=== PATIENT | female | born 1990 | race Caucasian/White ===

== ENCOUNTER 2020-05-11 13:08 | Emergency (ER) | payer OTHER ==
[~2020-05-11 13:08] MED LIST: BENTYL 20MG TAB20 MG PO; LODINE CAP 300300 MG PO; MIRALAX17 GM PO; NAPROSYN500 MG PO; NORCO 5-325 TA1 EACH PO; PRENATAL VITAM1 EAC8 PO; TYLENOL 500 MG500 MG PO; ZOFRAN ODT 4 MG4 MG PO
== END 2020-05-11 14:49 | disposition home or self-care (01) ==
LOC: ER1 13:08
DX: S63.502A Unspecified sprain of left wrist, initial encounter (principal); F17.200 Nicotine dependence, unspecified, uncomplicated; X58.XXXA Exposure to other specified factors, initial encounter; Y92.39 Other specified sports and athletic area as the place of occurrence of the external cause
CPT/HCPCS: 73110; 99283